=== PATIENT | male | born 2005 ===

== ENCOUNTER 2023-12-16 00:17 | Emergency (ER) | payer SELFPAY ==
[2023-12-16] MEDS: Ondansetron 4 MG Tab.DIS PO ONE (00:51)
[2023-12-16] MEDS: Dexamethasone 4 MG Tab PO ONE (00:51)
[2023-12-16] MEDS: Acetaminophen 500 MG Tab PO ONE (00:51)
== END 2023-12-16 02:08 | disposition home or self-care (01) ==
LOC: MW.ED 00:17
DX: F45.8 Other somatoform disorders (principal); Z88.0 Allergy status to penicillin; Z88.6 Allergy status to analgesic agent
CPT/HCPCS: 87651; 99283; J8540

== ENCOUNTER 2023-12-20 22:36 | Emergency (ER) | payer SELFPAY ==
[2023-12-21] MEDS: Sucralfate Suspension 1 GM/10 ML Cup PO ONE (02:23)
[2023-12-21] MEDS: Acetaminophen 500 MG Tab PO ONE (02:23)
== END 2023-12-21 04:50 | disposition home or self-care (01) ==
LOC: MW.ED 22:36
DX: J00 Acute nasopharyngitis [common cold] (principal); Z88.6 Allergy status to analgesic agent; Z88.0 Allergy status to penicillin; Z79.899 Other long term (current) drug therapy
CPT/HCPCS: 87635; 87651; 99284; A9270; 99283; U0002